=== PATIENT | female | born 1965 | race Caucasian/White ===

== ENCOUNTER → 2016-11-16 | Outpatient (CLI) | payer OTHER ==
[~2016-11-16] MED LIST: AMLO10TA2; BUPR-168 PO; CITA20TA7 PO; CLON0.5T3; ESTR1TAB24 PO; HYDR25TA4 PO; LISI1TAB6; NAPR-1033 PO; RIVA15TA PO; ZOLP5TAB7 PO
--- NOTE | 2016-11-16 13:14 | Diagnostic Imaging Report ---
PROCEDURE: US Thyroid. TECHNIQUE: Multiple real-time grayscale images were obtained of the thyroid in various projections. INDICATION: Followup thyroid nodule. FINDINGS: The right thyroid lobe is 5.3 x 2.8 x 2.5 cm. The left lobe is 2.9 x 0.9 x 1.1 cm. There is a right thyroid lobe mass measuring 5.3 x 2.4 x 2.5 cm with heterogenous solid and cystic components with increased internal vascularity seen. In comparison to 01/20/2016, it demonstrates interval mild enlargement compared to prior maximum measurement of 4.5 cm. In the left lobe, there is a colloid cyst measuring 5 mm. IMPRESSION: Mild enlargement in dominant 5.3 cm mass in the right thyroid lobe. Dictated by: Dictated on workstation # [id number]
== END ==
LOC: RAD 10:07
PROVIDERS: ATTEND Internal Medicine
DX: E04.1 Nontoxic single thyroid nodule (principal)
CPT/HCPCS: 76536

== ENCOUNTER → 2016-12-08 | Outpatient (CLI) | payer OTHER ==
--- NOTE | 2016-12-09 13:53 | Diagnostic Imaging Report ---
EXAMINATION: I-123 thyroid uptake scan. INDICATION: Thyroid mass. TECHNIQUE: The study was performed following administration of 199 ?Ci of I-123. FINDINGS: There are no previous nuclear medicine thyroid exams available for comparison. The 24-hour uptake is 29.1% (normal 15-35%). The thyroid ultrasound exam performed on 11/16/2016 noted a 5.3 x 2.4 x 2.5 cm heterogeneous solid nodule in the right lobe of the thyroid. This had increased in size since the prior thyroid ultrasound exam of 01/20/2016 when it measured 4.5 cm maximum diameter. The left lobe of the thyroid did not appear to be enlarged. There was a small 5 mm benign-appearing cyst along the inferior pole of the left lobe. On this study, there is diffuse uptake through the right lobe of the thyroid. This would suggest that the complex nodule is not a cold nodule. Even so, given its slight increase in size since the prior exam an ultrasound guided biopsy should be considered for further study. If there is no intervention at this time, and a short-term (three-month) followup thyroid ultrasound exam should be performed. There is virtually no uptake by the left lobe of the thyroid. The reason for this is not certain. IMPRESSION: 1. The thyroid uptake value is within normal limits. 2. There is diffuse uptake throughout the right lobe of the thyroid. Even so, the increase in size in the complex nodule in the right lobe is worrisome. Recommendations as above. 3. There is virtually no uptake of radiotracer by the left lobe. The reason for this is not certain. Dictated by: Dictated on workstation # [id number]
== END ==
LOC: CARD 10:56
PROVIDERS: ATTEND Internal Medicine
DX: E04.1 Nontoxic single thyroid nodule (principal)
CPT/HCPCS: 78014

== ENCOUNTER 2022-03-05 08:34 | Emergency (ER) | payer SELFPAY ==
[~2022-03-05] VITALS: Ht 170 cm; Wt 120.0 kg
[~2022-03-05 08:34] MED LIST changes: +AMLO-251; -AMLO10TA2; -CITA20TA7 PO; +CITA20TA9 PO; -CLON0.5T3; +CLON0.5T4; +LISI1TAB44; -LISI1TAB6; -RIVA15TA PO; +RIVA15TA2 PO
--- NOTE | 2022-03-05 09:00 | ED Headache ---
General Chief Complaint: Head/Cervical Problems Stated Complaint: MIGRAINE|NAUSEA Nursing Triage Note: ARRIVED VIA AMB TO ROOM 08 WITH COMPLAINTS OF HEADACHE N/V X2 WEEKS. COMPLAINS OF BLURRY VISION THE LAST COUPLE OF DAYS. PT HAS A HX OF BLOOD CLOTS AND HAS BEEN OFF HER BLOOD THINNERS SINCE OCTOBER. STATES SHE HAS BEEN TAKING A BABY ASA DAILY. PT HAD COVID A MONTH AGO. Source: patient Exam Limitations: no limitations History of Present Illness Date Seen by Provider: Mar 05, 2022 Time Seen by Provider: 08:50 Initial Comments Patient is a 56-year-old female who presents to the emergency room with 4 days of worsening occipital headache, nausea and vomiting that has progressed over the last week or 2, some blurry vision over the last couple of days and a "tingling" in bilateral upper extremities. Patient has a history of previous DVT and pulmonary embolism. She is supposed to be anticoagulated on Coumadin but quit taking it in October of this year. She has been on baby aspirin daily. She is a smoker. Last time she saw her primary care physician was in September of this past summer. She is not on any daily prescribed medications currently. States that she does not believe she is a diabetic. No blood pressure medications. Nothing intensifies the headache. She feels like it is a "squeezing". She initially thought she had a sinus infection so started taking some leftover amoxicillin. She is taking Mucinex. She has been taking 2 rwfq-fji-tjifmvu Aleve twice daily without any relief of symptoms. Again some nausea and vomiting. Some blurry vision. No fevers or chills. No productive cough. No diarrhea or urinary complaints. No joint swelling or calf tenderness currently. Family history of 2 brothers who had "major strokes" at age 47 and 50. All other review of systems reviewed and negative except as stated Timing/Duration: 1 week Severity/Quality: moderate, other (squeezinf) Prior Headaches/Recent Trauma: occasional headaches Associated Symptoms: other (Feels a little off balance, tingling in arms, blurry vision) Allergies and Home Medications Allergies Coded Allergies: No Known Drug Allergies (Unverified , 07/24/15) Patient Home Medication List Home Medication List Reviewed: Yes Amoxicillin/Potassium Clav (Amox Tr-K Clv 875-125 mg Tab) 875 Mg-125 Mg Tablet, 1 EACH PO BID Prescribed by: DARCI MCNEAL on 03/05/22 1042 Ondansetron (Ondansetron Odt) 8 Mg Tab.rapdis, 8 MG SL Q8H PRN for NAUSEA/VOMITING Prescribed by: DARCI MCNEAL on 03/05/22 1042 Discontinued Medications Amlodipine Besylate (Amlodipine Besylate) 10 Mg Tablet, (Reported) Discontinued Reason: No Longer Taking Entered as Reported by: OSCAR PARRY on 01/03/161250 Last Action: Discontinued Citalopram Hydrobromide (Citalopram HBr) 20 Mg Tablet, 20 MG PO, (Reported) Discontinued Reason: No Longer Taking Entered as Reported by: OSCAR PARRY on 01/03/161250 Last Action: Discontinued Clonazepam (Clonazepam) 0.5 Mg Tablet, (Reported) Discontinued Reason: No Longer Taking Entered as Reported by: OSCAR PARRY on 01/03/161250 Last Action: Discontinued Lisinopril/Hydrochlorothiazide (Lisinopril-Hctz 10-12.5 mg Tab) 1 Each Tablet, (Reported) Discontinued Reason: No Longer Taking Entered as Reported by: OSCAR PARRY on 01/03/161250 Last Action: Discontinued Rivaroxaban (Xarelto Tablet) 15 Mg Tablet, 15 MG PO BID@,17 Discontinued Reason: No Longer Taking Prescribed by: CAROLINA COCHRAN on 01/04/16805 Last Action: Discontinued Zolpidem Tartrate (Zolpidem Tartrate) 5 Mg Tablet, 5 MG PO HS, (Reported) Discontinued Reason: No Longer Taking Entered as Reported by: MELIZA CONWAY on 01/03/162039 Last Action: Discontinued Review of Systems Review of Systems Constitutional: see HPI Eyes: Blurred Vision Ears, Nose, Mouth, Throat: no symptoms reported Respiratory: no symptoms reported Cardiovascular: no symptoms reported Gastrointestinal: nausea, vomiting Genitourinary: no symptoms reported Musculoskeletal: no symptoms reported Skin: no symptoms reported Psychiatric/Neurological: Paresthesia (bilateral upper extremity) All Other Systems Reviewed Negative Unless Noted: Yes Past Lksjzsf-Lhdaoi-Juzlcl Hx Patient Social History Tobacco Use?: Yes Tobacco type used: Cigarettes Substance use?: No Alcohol Use?: No Past Medical History Section, Gallbladder, Hysterectomy Hypertension Reproductive Disorders: Yes Depression Family Medical History Cardiovascular disease G8 BROTHER FH: breast cancer 19 MOTHER Hypertension 19 FATHER 19 MOTHER G8 BROTHER No Pertinent Family Hx, DVT/PE Physical Exam Vital Signs Vital Signs - First Documented 03/05/22 08:40 Temp 36.4 Pulse 79 Resp 16 B/P (MAP) 154/88 (110) Pulse Ox 97 O2 Delivery Room Air Capillary Refill : Less Than 3 Seconds Height, Weight, BMI Height: 5'7.00" Weight: 237lbs. 0.0oz. 107.857993vm; 41.00 BMI Method:Stated General Appearance: WD/WN, no apparent distress HEENT: PERRL/EOMI, TMs normal, other (mild sinus tenderness to palpation) Neck: supple Cardiovascular: regular rate, rhythm, no murmur Respiratory: lungs clear, normal breath sounds, no respiratory distress, no accessory muscle use Gastrointestinal: non tender, soft Extremities: normal range of motion, normal inspection, no pedal edema Psychiatric: alert, oriented x 3, other (slightly anxious) Crainal Nerves: normal hearing, normal speech, PERRL Coordination/Gait: normal finger to nose, normal gait Motor/Sensory: no motor deficit, no sensory deficit, no pronator drift Skin: normal color, warm/dry Progress/Results/Core Measures Results/Orders Lab Results Laboratory Tests Test 03/05/22 09:10 03/05/22 09:24 Range/Units White Blood Count 7.6 4.3-11.0 10^3/uL Red Blood Count 5.02 3.80-5.11 10^6/uL Hemoglobin 16.3 H 11.5-16.0 g/dL Hematocrit 49 35-52 % Mean Corpuscular Volume 97 80-99 fL Mean Corpuscular Hemoglobin 33 25-34 pg Mean Corpuscular Hemoglobin Concent 33 32-36 g/dL Red Cell Distribution Width 11.8 10.0-14.5 % Platelet Count 284 130-400 10^3/uL Mean Platelet Volume 9.8 9.0-12.2 fL Immature Granulocyte % (Auto) 0 % Neutrophils (%) (Auto) 53 42-75 % Lymphocytes (%) (Auto) 40 12-44 % Monocytes (%) (Auto) 4 0-12 % Eosinophils (%) (Auto) 1 0-10 % Basophils (%) (Auto) 1 0-10 % Neutrophils # (Auto) 4.0 1.8-7.8 10^3/uL Lymphocytes # (Auto) 3.1 1.0-4.0 10^3/uL Monocytes # (Auto) 0.3 0.0-1.0 10^3/uL Eosinophils # (Auto) 0.1 0.0-0.3 10^3/uL Basophils # (Auto) 0.0 0.0-0.1 10^3/uL Immature Granulocyte # (Auto) 0.0 0.0-0.1 10^3/uL Prothrombin Time 12.7 12.2-14.7 SEC INR Comment 0.9 0.8-1.4 Activated Partial Thromboplast Time 26 24-35 SEC D-Dimer 0.48 0.00-0.49 UG/ML Sodium Level 140 135-145 MMOL/L Potassium Level 4.0 3.6-5.0 MMOL/L Chloride Level 101 98-107 MMOL/L Carbon Dioxide Level 29 21-32 MMOL/L Anion Gap 10 5-14 MMOL/L Blood Urea Nitrogen 13 7-18 MG/DL Creatinine 0.84 0.60-1.30 MG/DL Estimat Glomerular Filtration Rate 82 BUN/Creatinine Ratio 15 Glucose Level 116 H 70-105 MG/DL Calcium Level 9.3 8.5-10.1 MG/DL Corrected Calcium 9.5 8.5-10.1 MG/DL Total Bilirubin 0.5 0.1-1.0 MG/DL Aspartate Amino Transf (AST/SGOT) 17 5-34 U/L Alanine Aminotransferase (ALT/SGPT) 19 0-55 U/L Alkaline Phosphatase 92 40-136 U/L Troponin I < 0.028 <0.028 NG/ML Total Protein 6.9 6.4-8.2 GM/DL Albumin 3.8 3.2-4.5 GM/DL Urine Color YELLOW Urine Clarity CLEAR Urine pH 8.5 5-9 Urine Specific [place] 1.015 L 1.016-1.022 Urine Protein NEGATIVE NEGATIVE Urine Glucose (UA) NEGATIVE NEGATIVE Urine Ketones NEGATIVE NEGATIVE Urine Nitrite NEGATIVE NEGATIVE Urine Bilirubin NEGATIVE NEGATIVE Urine Urobilinogen 0.2 < = 1.0 MG/DL Urine Leukocyte Esterase NEGATIVE NEGATIVE Urine RBC (Auto) NEGATIVE NEGATIVE Urine RBC NONE /HPF Urine WBC NONE /HPF Urine Squamous Epithelial Cells 0-2 /HPF Urine Crystals NONE /LPF Urine Bacteria NEGATIVE /HPF Urine Casts NONE /LPF Urine Mucus NEGATIVE /LPF Urine Culture Indicated NO My Orders Orders - DARCI MCNEAL MD Cbc With Automated Diff (03/05/22:) Protime With Inr (03/05/22:) Partial Thromboplastin Time (03/05/22:) Comprehensive Metabolic Panel (03/05/22:) Fibrin Degradation Products (03/05/22:) Troponin I Mega (03/05/22:) Ua Culture If Indicated (03/05/22:) Chest 1 View, Ap/Pa Only (03/05/22:) Ekg Tracing (03/05/22:) Accucheck Stat ONCE (03/05/22:) Ed Iv/Invasive Line Start (03/05/22:) Ed Iv/Invasive Line Start (03/05/22:) Vital Signs Stroke Patient Q15M (03/05/22 09:03) Ct Head Wo-R/O Stroke (03/05/22:) O2 (03/05/22:) Intake & Output 06,14,22 (03/05/22 09:03) Monitor-Rhythm Ecg Trace Only (03/05/22:) Dysphagia Screening Tool Q10MX1 (03/05/22:) Post Thrombolytic Adminstratio (03/05/22 09:03) Ketorolac Injection (Toradol Injection) (03/05/22 10:15) Medications Given in ED Vital Signs/I&O 03/05/22 03/05/22 08:40 10:54 Temp 36.4 Pulse 79 71 Resp 16 16 B/P (MAP) 154/88 (110) 136/92 Pulse Ox 97 98 O2 Delivery Room Air Room Air Blood Pressure Mean: 110 Progress Progress Note : Time: 10:36 Progress Note 56-year-old female presents with a chief complaint of headache, vision changes, "feels weird". Very concerned as her symptoms have been ongoing for 3 or 4 days. Suspected she might have a sinus infection as a cause of her blurry vision. Evaluation today includes comprehensive stroke evaluation with basic labs, coags, D-dimer, urinalysis, troponin EKG chest x-ray and head CT. The entire work-up is unremarkable. She does have incidental finding of complete opacification of the right maxillary sinus. She has stable vital signs, was treated in the emergency department with 15 mg of Toradol IV. She has yet to feel any relief from the medication. No clinical or objective findings suggestive of acute ischemic stroke to warrant further hospitalization or risk stratification from an emergent inpatient admission. She does not have a current primary care physician. I have advised her that she needs to find 1 for routine medical care. We will put her on some Augmentin for the next 7 days for the sinusitis. I encouraged her to quit smoking. Uyci-gax-wvrlnzi medications such as naproxen or Advil for headache. She is requesting some nausea medic ation. Family is comfortable with plan of care. All questions have been sought and answered Initial ECG Impression Date: Mar 05, 2022 Initial ECG Impression Time: : Initial ECG Rate: 73 Initial ECG Rhythm: Normal Sinus Initial ECG Intervals: Normal Initial ECG Impression: Normal Diagnostic Imaging Diagonstic Imaging: Xray Plain Films/CT/US/NM/MRI: chest Comments [facility] [place], [place] NAME: ELISHA RAMOS [facility] REC#: [id number] PT STATUS: REG ER : 1965 PHYSICIAN: DARCI MCNEAL MD ADMIT DATE: 03/05/22/ER Draft Date of Exam:03/05/22 CHEST 1 VIEW, AP/PA ONLY INDICATION: Headache and blurred vision. Frontal chest obtained at 09:15 a.m. compared to 01/03/2016 FINDINGS: Heart and mediastinal silhouette are normal in appearance. The lungs are clear. There is no pneumothorax or pleural fluid. IMPRESSION: Negative chest. Dictated on workstation # [id number] Dict: 03/05/22937 Trans: 03/05/22 0939 [id number] Interpreted by: TIFFANIE TEJEDA MD Electronically signed by: Comments [facility] [place], [place] NAME: ELISHA RAMOS [facility] REC#: [id number] PT STATUS: REG ER : 1965 PHYSICIAN: DARCI MCNEAL MD ADMIT DATE: 03/05/22/ER Draft Date of Exam:03/05/22 CT HEAD WO-R/O STROKE INDICATION: Headache and nausea and vomiting and blurred vision. TECHNIQUE: Multiple contiguous axial images were obtained through the brain without the use of intravenous contrast. Auto Exposure Controls were utilized during the CT exam to meet ALARA standards for radiation dose reduction. There is no prior study for comparison There are no extra-axial fluid flexions. No intracranial hemorrhage. No intracranial mass or mass effect. No midline shift. The ventricles are normal in size and position. There were no focal parenchymal abnormalities in the brain. Calvarial windows appear unremarkable. There is near complete opacification of the right maxillary sinus. There is a small retention cyst or polyp in the left sphenoid sinus. Remaining sinuses are clear. Orbital contents are grossly unremarkable. IMPRESSION: No acute intracranial abnormality. Incidental note made of near complete opacification of the right maxillary sinus. There is a small retention cyst or polyp in the left sphenoid sinus. Dictated on workstation # [id number] Dict: 03/05/22 1018 Trans: 03/05/[address] [place] [id number] Interpreted by: TIFFANIE TEJEDA MD Electronically signed by: Counseling-Symptomatic: 3-10 Minutes Follow-up with PCP to: Discuss Further Options Departure Impression Primary Impression: Headache Qualified Codes: R51.9 - Headache, unspecified Additional Impression: Sinusitis, acute maxillary Qualified Codes: J01.00 - Acute maxillary sinusitis, unspecified Disposition: 01 HOME, SELF-CARE Condition: Stable Departure-Patient Inst. Decision time for Depature: 10:39 Referrals: VINCENT HARP DO (PCP/Family) Primary Care Physician Patient Instructions: Headache, Adult ED, Sinusitis, Adult ED Add. Discharge Instructions: Take the antibiotics twice a day for the next 7 days. Use an bawq-shq-nfyiqsb sinus rinse, saline nasal spray and Mucinex to help clear your sinuses. Zofran, 8 mg tablets every 8 hours as needed for nausea. Csdq-itf-rwyqotb Aleve, 2 pills with food twice daily for headache OR ibuprofen 3 tablets which is 600 mg every 6-8 hours for headache. Always take these medications with food. You should follow-up with your primary care provider to get reestablished on your Coumadin and for further evaluation of elevated blood pressure. Return to the emergency room for any new, concerning or emergent complaints. Scripts Amoxicillin/Potassium Clav (Amox Tr-K Clv 875-125 mg Tab) 875 Mg-125 Mg Tablet 1 EACH PO BID for 7 Days, #14 TAB Prov: DARCI MCNEAL MD 03/05/22 Ondansetron (Ondansetron Odt) 8 Mg Tab.rapdis 8 MG SL Q8H PRN for NAUSEA/VOMITING, #20 TAB Prov: DARCI MCNEAL MD 03/05/22 Copy Copies To 1: VINCENT HARP KATHRYN M MD Mar 05, 2022 09:00
[2022-03-05 09:20] LABS: BASOPHILS % (AUTO) 1 % (0-10); EOSINOPHILS # (AUTO) 0.1 10^3/uL (0.0-0.3); EOSINOPHILS % (AUTO) 1 % (0-10); HEMATOCRIT 49 % (35-52); HEMOGLOBIN 16.3 g/dL (11.5-16.0); LYMPHOCYTES # (AUTO) 3.1 10^3/uL (1.0-4.0); LYMPHOCYTES % (AUTO) 40 % (12-44); MEAN CORPUSCULAR HEMOGLOBIN 33 pg (25-34); MEAN CORPUSCULAR HGB CONC 33 g/dL (32-36); MEAN CORPUSCULAR VOLUME 97 fL (80-99); MEAN PLATELET VOLUME 9.8 fL (9.0-12.2); MONOCYTES # (AUTO) 0.3 10^3/uL (0.0-1.0); MONOCYTES % (AUTO) 4 % (0-12); NEUTROPHILS % (AUTO) 53 % (42-75); PLATELET COUNT 284 10^3/uL (130-400); WHITE BLOOD COUNT 7.6 10^3/uL (4.3-11.0)
[2022-03-05 09:34] LABS: BILIRUBIN,URINE NEGATIVE (NEGATIVE); CLARITY,URINE CLEAR; COLOR,URINE YELLOW; GLUCOSE, URINE (UA) NEGATIVE (NEGATIVE); KETONES,URINE NEGATIVE (NEGATIVE); LEUKOCYTE ESTERASE ,URINE NEGATIVE (NEGATIVE); NITRITE,URINE NEGATIVE (NEGATIVE); PH,URINE 8.5 (5-9); PROTEIN,URINE NEGATIVE (NEGATIVE)
[2022-03-05 09:36] LABS: ALBUMIN 3.8 GM/DL (3.2-4.5)
[2022-03-05 09:37] LABS: CHLORIDE 101 MMOL/L (98-107); SODIUM 140 MMOL/L (135-145)
[2022-03-05 09:38] LABS: CALCIUM 9.3 MG/DL (8.5-10.1)
[2022-03-05 09:39] LABS: GLUCOSE 116 MG/DL (70-105); TOTAL PROTEIN 6.9 GM/DL (6.4-8.2)
--- NOTE | 2022-03-05 09:39 | Diagnostic Imaging Report ---
INDICATION: Headache and blurred vision. Frontal chest obtained at 09:15 a.m. compared to 01/03/2016 FINDINGS: Heart and mediastinal silhouette are normal in appearance. The lungs are clear. There is no pneumothorax or pleural fluid. IMPRESSION: Negative chest. Dictated by: Dictated on workstation # [id number]
[2022-03-05 09:40] LABS: CARBON DIOXIDE 29 MMOL/L (21-32); FIBRIN DEGRADATION PRODUCTS 0.48 UG/ML (0.00-0.49); INR 0.9 (0.8-1.4); PROTHROMBIN TIME PATIENT 12.7 SEC (12.2-14.7)
[2022-03-05 09:41] LABS: BILIRUBIN,TOTAL 0.5 MG/DL (0.1-1.0)
[2022-03-05 09:42] LABS: ALKALINE PHOSPHATASE 92 U/L (40-136)
[2022-03-05 09:43] LABS: CREATININE SERUM 0.84 MG/DL (0.60-1.30); GFR ESTIMATED 82
[2022-03-05 09:44] LABS: BUN/CREATININE RATIO 15
[2022-03-05 09:45] LABS: ALANINE AMINOTRANSFERASE 19 U/L (0-55)
[2022-03-05 09:56] LABS: BACTERIA,URINE NEGATIVE /HPF; SQUAMOUS EPITHELIAL CELL,UR 0-2 /HPF
[2022-03-05] MEDS ORDERED: KETOROLAC 30 MG/ML VIAL IVP ONE (10:15)
--- NOTE | 2022-03-05 10:25 | Diagnostic Imaging Report ---
INDICATION: Headache and nausea and vomiting and blurred vision. TECHNIQUE: Multiple contiguous axial images were obtained through the brain without the use of intravenous contrast. Auto Exposure Controls were utilized during the CT exam to meet ALARA standards for radiation dose reduction. There is no prior study for comparison There are no extra-axial fluid flexions. No intracranial hemorrhage. No intracranial mass or mass effect. No midline shift. The ventricles are normal in size and position. There were no focal parenchymal abnormalities in the brain. Calvarial windows appear unremarkable. There is near complete opacification of the right maxillary sinus. There is a small retention cyst or polyp in the left sphenoid sinus. Remaining sinuses are clear. Orbital contents are grossly unremarkable. IMPRESSION: No acute intracranial abnormality. Incidental note made of near complete opacification of the right maxillary sinus. There is a small retention cyst or polyp in the left sphenoid sinus. Dictated by: Dictated on workstation # [id number]
[2022-03-05] MEDS ORDERED: ONDA8TAB13 SL (10:42)
[2022-03-05] MEDS ORDERED: AMOX1TAB12 PO (10:42)
[2022-03-05 10:54] VITALS: BP 136/92
== END 2022-03-05 10:54 | disposition home or self-care (01) ==
LOC: EDUNIT# 08:34 → ER 08:37
DX: J01.00 Acute maxillary sinusitis, unspecified (principal); F17.210 Nicotine dependence, cigarettes, uncomplicated; Z79.01 Long term (current) use of anticoagulants; Z28.310 Unvaccinated for COVID-19; Z91.14 Patient's other noncompliance with medication regimen
CPT/HCPCS: 36415; 70450; 71045; 80053; 81000; 84484; 85025; 85379; 85610; 85730; 93005; 93041